=== PATIENT | female | born 1955 | race Caucasian/White ===

== ENCOUNTER → 2018-10-07 14:00 | Outpatient (CLI) | payer OTHER, SELFPAY | DX: Z23 Encounter for immunization (principal) | CPT/HCPCS: 90471; 90686 ==

== ENCOUNTER → 2019-10-29 15:43 | Outpatient (CLI) | payer OTHER, SELFPAY | DX: Z23 Encounter for immunization (principal) | CPT/HCPCS: 90471; 90686 ==

== ENCOUNTER → 2020-10-13 | Outpatient (CLI) | payer OTHER, SELFPAY | PROVIDERS: Referring Provider Internal Medicine; Visit Provider Internal Medicine | DX: Z23 Encounter for immunization (principal) | CPT/HCPCS: 90471; 90686 ==

== ENCOUNTER → 2020-12-03 09:45 | Outpatient (CLI) | payer OTHER, SELFPAY ==
[2020-12-03] MEDS: COVID-19 VACC(MODERNA-1)/PF 100 MCG/0.5 ML VIAL IM (10:02)
== END ==
PROVIDERS: Visit Provider Internal Medicine
DX: Z23 Encounter for immunization (principal)
CPT/HCPCS: 0011A; 91301

== ENCOUNTER → 2020-12-30 09:57 | Outpatient (CLI) | payer OTHER, SELFPAY ==
[2020-12-30] MEDS: COVID-19 VACC #2, MRNA(MOD) 100 MCG/0.5 ML VIAL IM (10:02)
== END ==
PROVIDERS: Visit Provider Internal Medicine
DX: Z23 Encounter for immunization (principal)
CPT/HCPCS: 0012A; 91301

== ENCOUNTER → 2021-02-24 16:00 | Outpatient (CLI) | payer OTHER, SELFPAY ==
--- NOTE | 2021-02-24 16:03 | DI.RAD.S_ITS ---
PROCEDURE: XR KNEE RT 3V INDICATIONS: RIGHT KNEE PAIN/INJURY TECHNIQUE: 3 views of the knee were acquired. COMPARISON: None. FINDINGS: Bones: No fractures or dislocations. No suspicious bony lesions. Mild to moderate medial and patellofemoral compartment osteoarthritis. Mild lateral compartment osteoarthritis. Soft tissues: Small suprapatellar joint effusion. No suspicious soft tissue calcifications. IMPRESSION: 1. No fracture. No acute osseous lesion. If symptoms and/or clinical suspicion for pathology persists, further assessment with repeat radiographs (7-10 days) or advanced imaging (e.g. CT, MRI or bone scan) should be considered. 2. Nonspecific joint effusion. Occult traumatic injury is not excluded by this study. Dictated by: Yesi Lau MD, PhD on 02/24/2021 at 16:47 Approved by: Yesi Lau MD, PhD on 02/24/2021 at 16:49
== END ==
PROVIDERS: PCP Nurse Practitioner Family; Referring Provider Nurse Practitioner Family; Visit Provider Nurse Practitioner Family
DX: M25.561 Pain in right knee (principal)
CPT/HCPCS: 73562

== ENCOUNTER → 2021-03-04 10:22 | Outpatient (CLI) | payer OTHER, SELFPAY ==
--- NOTE | 2021-03-04 10:23 | DI.US.S_ITS ---
PROCEDURE: US EXTREMITY NONVASC LOWER RT INDICATIONS: KNEE PAIN; POSSIBLE BAKERS CYST TECHNIQUE: Real-time scanning was performed of the right popliteal fossa , with image documentation. COMPARISON: None. FINDINGS: 3.3 cm mildly complex Harper's cyst. IMPRESSION: 3.3 cm Harper's cyst. Dictated by: Pj DOTSON Interpreted: Jaden Chong MD on 03/04/2021 at 11:13 Approved by: Jaden Chong M.D. on 03/04/2021 at 12:57
== END ==
PROVIDERS: PCP Nurse Practitioner Family; Referring Provider Nurse Practitioner Family; Visit Provider Nurse Practitioner Family
DX: M71.20 Synovial cyst of popliteal space [Baker], unspecified knee (principal)
CPT/HCPCS: 76882

== ENCOUNTER 2021-05-06 09:00 | Outpatient (RCR) | payer OTHER, SELFPAY ==
--- NOTE | 2021-04-04 12:00 | PT.OIE ---
Current Diagnoses Unilateral primary osteoarthritis, right knee (04/04/21) Unspecified tear of unspecified meniscus, current injury, right knee, initial encounter (04/04/21) Visit Care Team Role Provider Type ALLAN Montano Family Provider Advanced Internal Audit Manager Primary Care Provider Specialty: Family Practice Address: [address] [facility] [address] [facility] [place], [address] Email: Frank Arambula MD Attending Provider Physician Referring Provider Specialty: Orthopedic Surgery Address: [address] [place] [address], [id number] Email: Physical Therapy Initial Evaluation PT-OP-A Visit Information Start: 04/04/21 17:58 Freq: Status: Active Protocol: Document 04/04/21 11:15 DCW (Rec: 04/05/21 09:45 DCW [id number]) Out-Patient Physical Therapy Visit Information Visit Information Visit Type Initial Evaluation Visit Start Time 11:15 Visit Stop Time 12:00 Total Visit Minutes 45 Visit Number 1 Number of MEDICAL SOCIAL WORKER Visits 0 Evaluation Information Evaluation Date 04/04/21 PT-OP-B Current Condition Start: 04/04/21 17:58 Freq: Status: Active Protocol: Document 04/04/21 11:15 DCW (Rec: 04/05/21 09:45 DCW [id number]) Current Condition History of Current Condition Onset Date ~6 week history Current Complaints R knee pain, instability, fatigue History of Current Condition Pt is a 65 year old female presenting with a ~6 week history of right knee pain. Pt notes her pain began when she was bent over and her dog jumped at her. Admits she has been babying it, but going downhill or descending stairs still bothers her. Also admits that since she is compensating, the left is now taking a lot of abuse. Notes some fatigue when out walking the dog or sitting in her car. Has noticed an increase in popping at the knee, and has a recently diagnosed Harper's cyst on the right knee. Notes recent x-ray showed some mild arthritis. PT-OP-C Subjective Start: 04/04/21 17:58 Freq: Status: Active Protocol: Document 04/04/21 11:15 DCW (Rec: 04/05/21 12:46 DCW [id number]) OP-PT Subjective Patient Comments Patient Comments Pivoting just feels like something I shouldn't be doing on it. It just doesn't have the stability it used to. Patient Reported Progress Improving Patient Questionnaires Lower Extremity Functional Scale LEFS Score 43.75% LEFS Impairment 40 to 59% Impaired (Score 32- 47) PT-OP-F Manual Assessment Start: 04/04/21 17:58 Freq: Status: Active Protocol: Document 04/04/21 11:15 DCW (Rec: 04/05/21 12:46 DCW [id number]) Manual Assessments Soft Tissue Assessment Soft Tissue Mobility Assessment Mild joint effusion, general soreness along right medial patella, R Harper's cyst PT-OP-G Mobility & Gait Start: 04/04/21 17:58 Freq: Status: Active Protocol: Document 04/04/21 11:15 DCW (Rec: 04/05/21 14:15 DCW [id number]) OP Gait Assessment Gait Gait Assistance Required: Independent Able to Maintain Weight Bearing Status Yes During Gait Assistive Devices Assistive Device None Comments Gait Comments R supination during gait with abnormal wear pattern along outside edge of right shoe. Stair Climbing Evaluation Comments Stair Climbing Comments Knee discomfort with descending steps PT-OP-L Special Tests Start: 04/04/21 17:58 Freq: Status: Active Protocol: Document 04/04/21 11:15 DCW (Rec: 04/05/21 14:15 DCW [id number]) Special Tests Lumbar Spine Special Tests A-P Shearing Test Results Negative EMMA Test Results Negative Straight Leg Raise Test Results Negative Slump Test Results Negative Compression Test Results Negative Knee Special Tests Varus- 0 Degrees Test Results Negative Valgus- 0 Degrees Test Results Negative Posterior Draw Test Results Negative Patellar Grind Test Test Results Positive R Patella Tap Test Results Positive R Adam's Test Test Results Negative Ankush Test Test Results Negative Apprehension Test Test Results Negative Apley's Compression Test Results Negative Anterior Draw Test Results Negative PT-OP-M Strength Start: 04/04/21 17:58 Freq: Status: Active Protocol: Document 04/04/21 11:15 DCW (Rec: 04/05/21 14:15 DCW [id number]) Hip Strength Hip Manual Muscle Testing Right Flexion (L2) 5 Normal Extension (S1) 5 Normal Abduction 5 Normal Adduction 5 Normal External Rotation 5 Normal Internal Rotation 5 Normal Left Flexion (L2) 5 Normal Extension (S1) 5 Normal Abduction 5 Normal Adduction 5 Normal External Rotation 5 Normal Internal Rotation 5 Normal Knee Strength Knee Manual Muscle Testing Right Flexion (S2) 4 Good Extension (L3) 5 Normal Comments R knee flexion weakness appeared to be more secondary to pain than muscle weakness Left Flexion (S2) 5 Normal Extension (L3) 5 Normal PT-OP-T Assessment and Plan Start: 04/04/21 17:58 Freq: Status: Active Protocol: Document 04/04/21 11:15 DCW (Rec: 04/05/21 14:25 DC [id number]) Physical Therapy Assessment Rehab Potential Rehabilitation Potential Good Evaluation Complexity Number of Personal Factors/Comorbidities 0 Number of Body Systems Impaired 1-2 Clinical Presentation at Evaluation Stable Impairments Impairments Activity Tolerance,Functional Mobility,Gait,Pain,Strength Goals Two Impairment Pt has difficulty walking down hill due to knee pain Custodial Goal (LTG) Pt to hike more than two miles over hilly terrain with no complaints of increased pain. LTG Duration 06/04/21 One Impairment Pt does not have an appropriate home exercise program Short Term Goal (STG) Pt to be independent and compliant with an appropriate HEP STG Duration 05/05/21 Assessment Summary Assessment Pt presents with signs and symptoms consistent with possible patellofemoral dysfunction. Pt's testing at her eval was largely negative, and therapist could not replicate pt's complaints of pain with any back or knee testing, however did discover significant crepitus and complaints of pain with right patella grind test. Pt patellar tracking appears to be mildly dysfunctional, minimal medial pull during knee extension. Additionally, pt does ambulate with right foot supination, and presents with an abnormal wear pattern along the lateral surface of her right shoe. Pt admits this is a normal wear pattern for her shoes, and it is unclear at this time if this is affecting her knee pain or an incidental finding. Pt may benefit from VMO strengthening , improving patellofemoral tracking, and gait training. Physical Therapy Plan Frequency and Duration Frequency of Treatment 2x/Week Duration of Treatment Two months Plan of Care Start Date 04/04/21 Plan of Care End Date 06/04/21 Therapeutic Interventions Therapeutic Interventions Gait Training,Home Exercise Program,Joint Mobilizations, Manual Therapy,Neuromuscular Re-education,Patient/Caregiver Education,Self-Care/Home Management,Therapeutic Exercises Modalities Cold Pack/Ice Massage,Electric Stimulation,Hot Packs, Ultrasound Next Visit Focus/Plan Next Note Type Treatment Note Next Visit Plan VMO strengthening, Patellar joint mobilizations, lao e -stim
--- NOTE | 2021-04-04 12:00 | PT.OPPOC ---
Physical, Occupational & Speech Therapy At [facility] Current Diagnoses Unilateral primary osteoarthritis, right knee (04/04/21) Unspecified tear of unspecified meniscus, current injury, right knee, initial encounter (04/04/21) Visit Care Team Role Provider Type ALLAN Montano Family Provider Advanced Lieutenant Firefighter Primary Care Provider Specialty: Family Practice Address: [facility] [place], [address] Email: Frank Arambula MD Attending Provider Physician Referring Provider Specialty: Orthopedic Surgery Address: [address] [place] [address], [id number] Email: [email or web address] Plan Of Care PT-OP-T Assessment and Plan Start: 04/04/21 17:58 Freq: Status: Active Protocol: Document 04/04/21 11:15 DCW (Rec: 04/05/21 14:25 DCW [id number]) Physical Therapy Assessment Rehab Potential Rehabilitation Potential Good Evaluation Complexity Number of Personal Factors/Comorbidities 0 Number of Body Systems Impaired 1-2 Clinical Presentation at Evaluation Stable Impairments Impairments Activity Tolerance,Functional Mobility,Gait,Pain,Strength Goals Two Impairment Pt has difficulty walking down hill due to knee pain Professor Of Languages Goal (LTG) Pt to hike more than two miles over hilly terrain with no complaints of increased pain. LTG Duration 06/04/21 One Impairment Pt does not have an appropriate home exercise program Short Term Goal (STG) Pt to be independent and compliant with an appropriate HEP STG Duration 05/05/21 Assessment Summary Assessment Pt presents with signs and symptoms consistent with possible patellofemoral dysfunction. Pt's testing at her eval was largely negative, and therapist could not replicate pt's complaints of pain with any back or knee testing, however did discover significant crepitus and complaints of pain with right patella grind test. Pt patellar tracking appears to be mildly dysfunctional, minimal medial pull during knee extension. Additionally, pt does ambulate with right foot supination, and presents with an abnormal wear pattern along the lateral surface of her right shoe. Pt admits this is a normal wear pattern for her shoes, and it is unclear at this time if this is affecting her knee pain or an incidental finding. Pt may benefit from VMO strengthening , improving patellofemoral tracking, and gait training. Physical Therapy Plan Frequency and Duration Frequency of Treatment 2x/Week Duration of Treatment Two months Plan of Care Start Date 04/04/21 Plan of Care End Date 06/04/21 Therapeutic Interventions Therapeutic Interventions Gait Training,Home Exercise Program,Joint Mobilizations, Manual Therapy,Neuromuscular Re-education,Patient/Caregiver Education,Self-Care/Home Management,Therapeutic Exercises Modalities Cold Pack/Ice Massage,Electric Stimulation,Hot Packs, Ultrasound Next Visit Focus/Plan Next Note Type Treatment Note Next Visit Plan VMO strengthening, Patellar joint mobilizations, tajik e -stim Plan of Care Dates Plan of Care Start Date 04/04/21 Plan of Care End Date 06/04/21 Electronically Signed by: Dandre Mcknight, PT 04/05/21 0568 Please Sign and Return: I have reviewed this Plan of Care and certify that the skilled therapy services above are required to meet the patient?s needs. Physician Signature Date Printed Name and Credentials Clinical Instructor Signature Printed Name and Credentials
--- NOTE | 2021-04-13 17:36 | PT.OTN ---
Current Diagnoses Unilateral primary osteoarthritis, right knee (04/13/21) Unspecified tear of unspecified meniscus, current injury, right knee, initial encounter (04/13/21) Physical Therapy Treatment Note PT-OP-A Visit Information Start: 04/04/21 17:58 Freq: Status: Active Protocol: Document 04/13/21 16:45 DCW (Rec: 04/13/21 17:36 DCW [id number]) Out-Patient Physical Therapy Visit Information Visit Information Visit Type Treatment Note Visit Start Time 16:45 Visit Stop Time 17:30 Total Visit Minutes 45 Visit Number 2 Number of HEAVY ANTIARMOR WEAPONS INFANTRYMAN Visits 0 Evaluation Information Evaluation Date 04/04/21 PT-OP-B Current Condition Start: 04/04/21 17:58 Freq: Status: Active Protocol: Document 04/04/21 11:15 DCW (Rec: 04/05/21 09:45 DCW [id number]) Current Condition History of Current Condition Onset Date ~6 week history Current Complaints R knee pain, instability, fatigue History of Current Condition Pt is a 65 year old female presenting with a ~6 week history of right knee pain. Pt notes her pain began when she was bent over and her dog jumped at her. Admits she has been babying it, but going downhill or descending stairs still bothers her. Also admits that since she is compensating, the left is now taking a lot of abuse. Notes some fatigue when out walking the dog or sitting inher car. Has noticed an increase in popping at the knee, and has a recently diagnosed Harper's cyst on the right knee. Notes recent x-ray showed some mild arthritis. PT-OP-C Subjective Start: 04/04/21 17:58 Freq: Status: Active Protocol: Document 04/13/21 16:45 DCW (Rec: 04/13/21 17:36 DCW [id number]) OP-PT Subjective Patient Comments Patient Comments Pt feels like her knee has been better, she has been paying more attention to her foot strike. Brings in her usual walking shoes, significant wear along lateral edge bilaterally. PT-OP-F Manual Assessment Start: 04/04/21 17:58 Freq: Status: Active Protocol: Document 04/04/21 11:15 DCW (Rec: 04/05/21 12:46 DCW [id number]) Manual Assessments Soft Tissue Assessment Soft Tissue Mobility Assessment Mild joint effusion, general soreness along right medial patella, R Harper's cyst PT-OP-G Mobility & Gait Start: 04/04/21 17:58 Freq: Status: Active Protocol: Document 04/04/21 11:15 DCW (Rec: 04/05/21 14:15 DCW [id number]) OP Gait Assessment Gait Gait Assistance Required: Independent Able to Maintain Weight Bearing Status Yes During Gait Assistive Devices Assistive Device None Comments Gait Comments R supination during gait with abnormal wear pattern along outside edge of right shoe. Stair Climbing Evaluation Comments Stair Climbing Comments Knee discomfort with descending steps PT-OP-L Special Tests Start: 04/04/21 17:58 Freq: Status: Active Protocol: Document 04/04/21 11:15 DCW (Rec: 04/05/21 14:15 DCW [id number]) Special Tests Lumbar Spine Special Tests A-P Shearing Test Results Negative EMMA Test Results Negative Straight Leg Raise Test Results Negative Slump Test Results Negative Compression Test Results Negative Knee Special Tests Varus- 0 Degrees Test Results Negative Valgus- 0 Degrees Test Results Negative Posterior Draw Test Results Negative Patellar Grind Test Test Results Positive R Patella Tap Test Results Positive R Adam's Test Test Results Negative Ankush Test Test Results Negative Apprehension Test Test Results Negative Apley's Compression Test Results Negative Anterior Draw Test Results Negative PT-OP-M Strength Start: 04/04/21 17:58 Freq: Status: Active Protocol: Document 04/04/21 11:15 DCW (Rec: 04/05/21 14:15 DCW [id number]) Hip Strength Hip Manual Muscle Testing Right Flexion (L2) 5 Normal Extension (S1) 5 Normal Abduction 5 Normal Adduction 5 Normal External Rotation 5 Normal Internal Rotation 5 Normal Left Flexion (L2) 5 Normal Extension (S1) 5 Normal Abduction 5 Normal Adduction 5 Normal External Rotation 5 Normal Internal Rotation 5 Normal Knee Strength Knee Manual Muscle Testing Right Flexion (S2) 4 Good Extension (L3) 5 Normal Comments R knee flexion weakness appeared to be more secondary to pain than muscle weakness Left Flexion (S2) 5 Normal Extension (L3) 5 Normal PT-OP-Q Treatments Start: 04/04/21 17:58 Freq: Status: Active Protocol: Document 04/13/21 16:45 DCW (Rec: 04/13/21 17:36 DCW [id number]) Cardio Equipment Recumbent Bicycle Duration (Minutes) 5 Resistance 3 Seat Position 3 Gym Equipment Shuttle Recovery Unilateral Squats Details Lateral T-band pull - lv 2 Resistance 50# Shuttle Recovery Platform Stable Bilateral Squats Details Ball Squeeze Resistance 75# Shuttle Recovery Platform Stable Therapeutic Exercises Supine Exercises 1 Supine Exercise Name SLR /c ER Side bilateral Standing Exercises 3 Standing Exercise Name Half-kneel psoas stretch Side bilateral 2 Standing Exercise Name Wall squats /c add ball squeeze 1 Standing Exercise Name TKE Side bilateral Resistance Lv 2 Equipment Used T-band Gait Training Gait Activity 1 Description Gait training Treatment Focus Heel strike, limit foot ER Manual Therapy Treatment Soft Tissue Mobilization 1 Body Location Bilateral psoas Mobilization Type Sustained Pressure,Trigger Point Release Body Position Hooklying Taping 1 Body Location Right patella Treatment Focus Medial patella pull Type of Tape Kinesio Tape PT-OP-T Assessment and Plan Start: 04/04/21 17:58 Freq: Status: Active Protocol: Document 04/13/21 16:45 DCW (Rec: 04/13/21 17:36 DCW [id number]) Physical Therapy Assessment Impairments Impairments Activity Tolerance,Functional Mobility,Gait,Pain,Strength Goals Two Impairment Pt has difficulty walking down hill due to knee pain Wall And Floor Tiler Goal (LTG) Pt to hike more than two miles over hilly terrain with no complaints of increased pain. LTG Duration 06/04/21 One Impairment Pt does not have an appropriate home exercise program Short Term Goal (STG) Pt to be independent and compliant with an appropriate HEP STG Duration 05/05/21 Assessment Summary Assessment Pt tolerated treatment very well today, happy with stretches and gait tips. Physical Therapy Plan Frequency and Duration Frequency of Treatment 2x/Week Duration of Treatment Two months Plan of Care Start Date 04/04/21 Plan of Care End Date 06/04/21 Therapeutic Interventions Therapeutic Interventions Gait Training,Home Exercise Program,Joint Mobilizations, Manual Therapy,Neuromuscular Re-education,Patient/Caregiver Education,Self-Care/Home Management,Therapeutic Exercises Modalities Cold Pack/Ice Massage,Electric Stimulation,Hot Packs, Ultrasound Next Visit Focus/Plan Next Note Type Treatment Note Next Visit Plan VMO strengthening, Patellar joint mobilizations, lao e -stim
--- NOTE | 2021-04-15 12:49 | PT.OTN ---
Current Diagnoses Unilateral primary osteoarthritis, right knee (04/15/21) Unspecified tear of unspecified meniscus, current injury, right knee, initial encounter (04/15/21) Physical Therapy Treatment Note PT-OP-A Visit Information Start: 04/04/21 17:58 Freq: Status: Active Protocol: Document 04/15/21 12:00 DCW (Rec: 04/15/21 12:49 DCW [id number]) Out-Patient Physical Therapy Visit Information Visit Information Visit Type Treatment Note Visit Start Time 12:00 Visit Stop Time 12:45 Total Visit Minutes 45 Visit Number 3 Number of ELECTRONIC SECURITY TECHNICIAN Visits 0 Evaluation Information Evaluation Date 04/04/21 PT-OP-B Current Condition Start: 04/04/21 17:58 Freq: Status: Active Protocol: Document 04/04/21 11:15 DCW (Rec: 04/05/21 09:45 DCW [id number]) Current Condition History of Current Condition Onset Date ~6 week history Current Complaints R knee pain, instability, fatigue History of Current Condition Pt is a 65 year old female presenting with a ~6 week history of right knee pain. Pt notes her pain began when she was bent over and her dog jumped at her. Admits she has been babying it, but going downhill or descending stairs still bothers her. Also admits that since she is compensating, the left is now taking a lot of abuse. Notes some fatigue when out walking the dog or sitting inher car. Has noticed an increase in popping at the knee, and has a recently diagnosed Harper's cyst on the right knee. Notes recent x-ray showed some mild arthritis. PT-OP-C Subjective Start: 04/04/21 17:58 Freq: Status: Active Protocol: Document 04/15/21 12:00 DCW (Rec: 04/15/21 12:49 DCW [id number]) OP-PT Subjective Patient Comments Patient Comments I didn't like the tape at first, it felt like it was pulling too much and kind of hurt, but then I got used to it, and I think it really started helping. PT-OP-F Manual Assessment Start: 04/04/21 17:58 Freq: Status: Active Protocol: Document 04/04/21 11:15 DCW (Rec: 04/05/21 12:46 DCW [id number]) Manual Assessments Soft Tissue Assessment Soft Tissue Mobility Assessment Mild joint effusion, general soreness along right medial patella, R Harper's cyst PT-OP-G Mobility & Gait Start: 04/04/21 17:58 Freq: Status: Active Protocol: Document 04/04/21 11:15 DCW (Rec: 04/05/21 14:15 DCW [id number]) OP Gait Assessment Gait Gait Assistance Required: Independent Able to Maintain Weight Bearing Status Yes During Gait Assistive Devices Assistive Device None Comments Gait Comments R supination during gait with abnormal wear pattern along outside edge of right shoe. Stair Climbing Evaluation Comments Stair Climbing Comments Knee discomfort with descending steps PT-OP-L Special Tests Start: 04/04/21 17:58 Freq: Status: Active Protocol: Document 04/04/21 11:15 DCW (Rec: 04/05/21 14:15 DCW [id number]) Special Tests Lumbar Spine Special Tests A-P Shearing Test Results Negative EMMA Test Results Negative Straight Leg Raise Test Results Negative Slump Test Results Negative Compression Test Results Negative Knee Special Tests Varus- 0 Degrees Test Results Negative Valgus- 0 Degrees Test Results Negative Posterior Draw Test Results Negative Patellar Grind Test Test Results Positive R Patella Tap Test Results Positive R Adam's Test Test Results Negative Ankush Test Test Results Negative Apprehension Test Test Results Negative Apley's Compression Test Results Negative Anterior Draw Test Results Negative PT-OP-M Strength Start: 04/04/21 17:58 Freq: Status: Active Protocol: Document 04/04/21 11:15 DCW (Rec: 04/05/21 14:15 DCW [id number]) Hip Strength Hip Manual Muscle Testing Right Flexion (L2) 5 Normal Extension (S1) 5 Normal Abduction 5 Normal Adduction 5 Normal External Rotation 5 Normal Internal Rotation 5 Normal Left Flexion (L2) 5 Normal Extension (S1) 5 Normal Abduction 5 Normal Adduction 5 Normal External Rotation 5 Normal Internal Rotation 5 Normal Knee Strength Knee Manual Muscle Testing Right Flexion (S2) 4 Good Extension (L3) 5 Normal Comments R knee flexion weakness appeared to be more secondary to pain than muscle weakness Left Flexion (S2) 5 Normal Extension (L3) 5 Normal PT-OP-Q Treatments Start: 04/04/21 17:58 Freq: Status: Active Protocol: Document 04/15/21 12:00 DCW (Rec: 04/15/21 12:49 DCW [id number]) Cardio Equipment Recumbent Bicycle Duration (Minutes) 5 Resistance 3 Seat Position 3 Gym Equipment Shuttle Recovery Unilateral Squats Details Lateral T-band pull - lv 2 Resistance 50# Shuttle Recovery Platform Stable Bilateral Squats Details Ball Squeeze Resistance 75# Shuttle Recovery Platform Stable Therapeutic Exercises Standing Exercises 4 Standing Exercise Name Lunge Side bilateral Equipment Used Blue BOSU 1 Standing Exercise Name TKE Side bilateral Resistance Lv 3 Equipment Used T-band Manual Therapy Treatment Joint Mobilizations 1 Joint Patella mobilization Direction Inf/Sup Grade III Taping 1 Body Location Right patella Treatment Focus Medial patella pull Type of Tape Kinesio Tape PT-OP-T Assessment and Plan Start: 04/04/21 17:58 Freq: Status: Active Protocol: Document 04/15/21 12:00 DCW (Rec: 04/15/21 12:49 DCW [id number]) Physical Therapy Assessment Impairments Impairments Activity Tolerance,Functional Mobility,Gait,Pain,Strength Goals Two Impairment Pt has difficulty walking down hill due to knee pain Welfare Analyst Goal (LTG) Pt to hike more than two miles over hilly terrain with no complaints of increased pain. LTG Duration 06/04/21 One Impairment Pt does not have an appropriate home exercise program Short Term Goal (STG) Pt to be independent and compliant with an appropriate HEP STG Duration 05/05/21 Assessment Summary Assessment Pt doing well, showing improved patella mobility without pain. K-tape helping with patella tracking. Physical Therapy Plan Frequency and Duration Frequency of Treatment 2x/Week Duration of Treatment Two months Plan of Care Start Date 04/04/21 Plan of Care End Date 06/04/21 Therapeutic Interventions Therapeutic Interventions Gait Training,Home Exercise Program,Joint Mobilizations, Manual Therapy,Neuromuscular Re-education,Patient/Caregiver Education,Self-Care/Home Management,Therapeutic Exercises Modalities Cold Pack/Ice Massage,Electric Stimulation,Hot Packs, Ultrasound Next Visit Focus/Plan Next Note Type Treatment Note Next Visit Plan VMO strengthening, Patellar joint mobilizations, barbadian e -stim
--- NOTE | 2021-04-27 17:36 | PT.OTN ---
Current Diagnoses Unilateral primary osteoarthritis, right knee (04/27/21) Unspecified tear of unspecified meniscus, current injury, right knee, initial encounter (04/27/21) Physical Therapy Treatment Note PT-OP-A Visit Information Start: 04/04/21 17:58 Freq: Status: Active Protocol: Document 04/27/21 16:50 DCW (Rec: 04/27/21 17:36 DCW [id number]) Out-Patient Physical Therapy Visit Information Visit Information Visit Type Treatment Note Visit Start Time 16:50 Visit Stop Time 17:30 Total Visit Minutes 40 Visit Number 4 Number of AIR DEODORIZER SERVICER Visits 0 Evaluation Information Evaluation Date 04/04/21 PT-OP-B Current Condition Start: 04/04/21 17:58 Freq: Status: Active Protocol: Document 04/04/21 11:15 DCW (Rec: 04/05/21 09:45 DCW [id number]) Current Condition History of Current Condition Onset Date ~6 week history Current Complaints R knee pain, instability, fatigue History of Current Condition Pt is a 65 year old female presenting with a ~6 week history of right knee pain. Pt notes her pain began when she was bent over and her dog jumped at her. Admits she has been babying it, but going downhill or descending stairs still bothers her. Also admits that since she is compensating, the left is now taking a lot of abuse. Notes some fatigue when out walking the dog or sitting inher car. Has noticed an increase in popping at the knee, and has a recently diagnosed Harper's cyst on the right knee. Notes recent x-ray showed some mild arthritis. PT-OP-C Subjective Start: 04/04/21 17:58 Freq: Status: Active Protocol: Document 04/27/21 16:50 DCW (Rec: 04/27/21 17:36 DCW [id number]) OP-PT Subjective Patient Comments Patient Comments Pt just got back from her trip to [place], feels like her knee is doing much better, was able to do a lot of hiking without problems, does note some catching in her knee cap after trying to stretch her knee out after sitting for her traveling yesterday. PT-OP-F Manual Assessment Start: 04/04/21 17:58 Freq: Status: Active Protocol: Document 04/04/21 11:15 DCW (Rec: 04/05/21 12:46 DCW [id number]) Manual Assessments Soft Tissue Assessment Soft Tissue Mobility Assessment Mild joint effusion, general soreness along right medial patella, R Harper's cyst PT-OP-G Mobility & Gait Start: 04/04/21 17:58 Freq: Status: Active Protocol: Document 04/04/21 11:15 DCW (Rec: 04/05/21 14:15 DCW [id number]) OP Gait Assessment Gait Gait Assistance Required: Independent Able to Maintain Weight Bearing Status Yes During Gait Assistive Devices Assistive Device None Comments Gait Comments R supination during gait with abnormal wear pattern along outside edge of right shoe. Stair Climbing Evaluation Comments Stair Climbing Comments Knee discomfort with descending steps PT-OP-L Special Tests Start: 04/04/21 17:58 Freq: Status: Active Protocol: Document 04/04/21 11:15 DCW (Rec: 04/05/21 14:15 DCW [id number]) Special Tests Lumbar Spine Special Tests A-P Shearing Test Results Negative EMMA Test Results Negative Straight Leg Raise Test Results Negative Slump Test Results Negative Compression Test Results Negative Knee Special Tests Varus- 0 Degrees Test Results Negative Valgus- 0 Degrees Test Results Negative Posterior Draw Test Results Negative Patellar Grind Test Test Results Positive R Patella Tap Test Results Positive R Adam's Test Test Results Negative Ankush Test Test Results Negative Apprehension Test Test Results Negative Apley's Compression Test Results Negative Anterior Draw Test Results Negative PT-OP-M Strength Start: 04/04/21 17:58 Freq: Status: Active Protocol: Document 04/04/21 11:15 DCW (Rec: 04/05/21 14:15 DCW [id number]) Hip Strength Hip Manual Muscle Testing Right Flexion (L2) 5 Normal Extension (S1) 5 Normal Abduction 5 Normal Adduction 5 Normal External Rotation 5 Normal Internal Rotation 5 Normal Left Flexion (L2) 5 Normal Extension (S1) 5 Normal Abduction 5 Normal Adduction 5 Normal External Rotation 5 Normal Internal Rotation 5 Normal Knee Strength Knee Manual Muscle Testing Right Flexion (S2) 4 Good Extension (L3) 5 Normal Comments R knee flexion weakness appeared to be more secondary to pain than muscle weakness Left Flexion (S2) 5 Normal Extension (L3) 5 Normal PT-OP-Q Treatments Start: 04/04/21 17:58 Freq: Status: Active Protocol: Document 04/27/21 16:50 DCW (Rec: 04/27/21 17:36 DCW [id number]) Cardio Equipment Recumbent Bicycle Duration (Minutes) 5 Resistance 3 Seat Position 3 Gym Equipment Shuttle Recovery Unilateral Squats Details Lateral T-band pull - lv 2 Resistance 50# Shuttle Recovery Platform Stable Bilateral Squats Details Ball Squeeze Resistance 87# Shuttle Recovery Platform Stable Therapeutic Exercises Standing Exercises 4 Standing Exercise Name Lunge Side bilateral Equipment Used Blue BOSU 1 Standing Exercise Name TKE Side bilateral Resistance Lv 3 Equipment Used T-band Manual Therapy Treatment Joint Mobilizations 1 Joint Patella mobilization Direction Inf/Sup Grade III PT-OP-T Assessment and Plan Start: 04/04/21 17:58 Freq: Status: Active Protocol: Document 04/27/21 16:50 DCW (Rec: 04/27/21 17:36 DCW [id number]) Physical Therapy Assessment Impairments Impairments Activity Tolerance,Functional Mobility,Gait,Pain,Strength Goals Two Impairment Pt has difficulty walking down hill due to knee pain Group Home Goal (LTG) Pt to hike more than two miles over hilly terrain with no complaints of increased pain. LTG Duration 06/04/21 One Impairment Pt does not have an appropriate home exercise program Short Term Goal (STG) Pt to be independent and compliant with an appropriate HEP STG Duration 05/05/21 Assessment Summary Assessment Pt overall feeling better, feels her knee is more mobile and walking is easier. Physical Therapy Plan Frequency and Duration Frequency of Treatment 2x/Week Duration of Treatment Two months Plan of Care Start Date 04/04/21 Plan of Care End Date 06/04/21 Therapeutic Interventions Therapeutic Interventions Gait Training,Home Exercise Program,Joint Mobilizations, Manual Therapy,Neuromuscular Re-education,Patient/Caregiver Education,Self-Care/Home Management,Therapeutic Exercises Modalities Cold Pack/Ice Massage,Electric Stimulation,Hot Packs, Ultrasound Next Visit Focus/Plan Next Note Type Treatment Note Next Visit Plan VMO strengthening, Patellar joint mobilizations, japanese e -stim
--- NOTE | 2021-04-29 09:47 | PT.OTN ---
Current Diagnoses Unilateral primary osteoarthritis, right knee (04/29/21) Unspecified tear of unspecified meniscus, current injury, right knee, initial encounter (04/29/21) Physical Therapy Treatment Note PT-OP-A Visit Information Start: 04/04/21 17:58 Freq: Status: Active Protocol: Document 04/29/21 09:05 DCW (Rec: 04/29/21 09:47 DCW [id number]) Out-Patient Physical Therapy Visit Information Visit Information Visit Type Treatment Note Visit Start Time 09:05 Visit Stop Time 09:45 Total Visit Minutes 40 Visit Number 5 Number of MANAGER MERCHANDISE Visits 0 Evaluation Information Evaluation Date 04/04/21 PT-OP-B Current Condition Start: 04/04/21 17:58 Freq: Status: Active Protocol: Document 04/04/21 11:15 DCW (Rec: 04/05/21 09:45 DCW [id number]) Current Condition History of Current Condition Onset Date ~6 week history Current Complaints R knee pain, instability, fatigue History of Current Condition Pt is a 65 year old female presenting with a ~6 week history of right knee pain. Pt notes her pain began when she was bent over and her dog jumped at her. Admits she has been babying it, but going downhill or descending stairs still bothers her. Also admits that since she is compensating, the left is now taking a lot of abuse. Notes some fatigue when out walking the dog or sitting inher car. Has noticed an increase in popping at the knee, and has a recently diagnosed Harper's cyst on the right knee. Notes recent x-ray showed some mild arthritis. PT-OP-C Subjective Start: 04/04/21 17:58 Freq: Status: Active Protocol: Document 04/29/21 09:05 DCW (Rec: 04/29/21 09:47 DCW [id number]) OP-PT Subjective Patient Comments Patient Comments Pt reports she went out golfing yesterday for the first time in a long time, and her knee did wonderfully. PT-OP-F Manual Assessment Start: 04/04/21 17:58 Freq: Status: Active Protocol: Document 04/04/21 11:15 DCW (Rec: 04/05/21 12:46 DCW [id number]) Manual Assessments Soft Tissue Assessment Soft Tissue Mobility Assessment Mild joint effusion, general soreness along right medial patella, R Harper's cyst PT-OP-G Mobility & Gait Start: 04/04/21 17:58 Freq: Status: Active Protocol: Document 04/04/21 11:15 DCW (Rec: 04/05/21 14:15 DCW [id number]) OP Gait Assessment Gait Gait Assistance Required: Independent Able to Maintain Weight Bearing Status Yes During Gait Assistive Devices Assistive Device None Comments Gait Comments R supination during gait with abnormal wear pattern along outside edge of right shoe. Stair Climbing Evaluation Comments Stair Climbing Comments Knee discomfort with descending steps PT-OP-L Special Tests Start: 04/04/21 17:58 Freq: Status: Active Protocol: Document 04/04/21 11:15 DCW (Rec: 04/05/21 14:15 DCW [id number]) Special Tests Lumbar Spine Special Tests A-P Shearing Test Results Negative EMMA Test Results Negative Straight Leg Raise Test Results Negative Slump Test Results Negative Compression Test Results Negative Knee Special Tests Varus- 0 Degrees Test Results Negative Valgus- 0 Degrees Test Results Negative Posterior Draw Test Results Negative Patellar Grind Test Test Results Positive R Patella Tap Test Results Positive R Adam's Test Test Results Negative Ankush Test Test Results Negative Apprehension Test Test Results Negative Apley's Compression Test Results Negative Anterior Draw Test Results Negative PT-OP-M Strength Start: 04/04/21 17:58 Freq: Status: Active Protocol: Document 04/04/21 11:15 DCW (Rec: 04/05/21 14:15 DCW [id number]) Hip Strength Hip Manual Muscle Testing Right Flexion (L2) 5 Normal Extension (S1) 5 Normal Abduction 5 Normal Adduction 5 Normal External Rotation 5 Normal Internal Rotation 5 Normal Left Flexion (L2) 5 Normal Extension (S1) 5 Normal Abduction 5 Normal Adduction 5 Normal External Rotation 5 Normal Internal Rotation 5 Normal Knee Strength Knee Manual Muscle Testing Right Flexion (S2) 4 Good Extension (L3) 5 Normal Comments R knee flexion weakness appeared to be more secondary to pain than muscle weakness Left Flexion (S2) 5 Normal Extension (L3) 5 Normal PT-OP-Q Treatments Start: 04/04/21 17:58 Freq: Status: Active Protocol: Document 04/29/21 09:05 DCW (Rec: 04/29/21 09:47 DCW [id number]) Cardio Equipment Recumbent Bicycle Duration (Minutes) 6 Resistance 5 Seat Position 2 Gym Equipment Shuttle Recovery Unilateral Squats Details Lateral T-band pull - lv 2 Resistance 50# Shuttle Recovery Platform Stable Bilateral Squats Details Ball Squeeze Resistance 100# Shuttle Recovery Platform Stable Therapeutic Exercises Standing Exercises 4 Standing Exercise Name Lunge Side bilateral Equipment Used Blue BOSU 1 Standing Exercise Name TKE Side bilateral Resistance Lv 3 Equipment Used T-band Manual Therapy Treatment Joint Mobilizations 1 Joint Patella mobilization Direction Inf/Sup Grade III PT-OP-T Assessment and Plan Start: 04/04/21 17:58 Freq: Status: Active Protocol: Document 04/29/21 09:05 [facility] (Rec: 04/29/21 09:47 [facility] [id number]) Physical Therapy Assessment Impairments Impairments Activity Tolerance,Functional Mobility,Gait,Pain,Strength Goals Two Impairment Pt has difficulty walking down hill due to knee pain Shovel Oiler Goal (LTG) Pt to hike more than two miles over hilly terrain with no complaints of increased pain. LTG Duration 06/04/21 One Impairment Pt does not have an appropriate home exercise program Short Term Goal (STG) Pt to be independent and compliant with an appropriate HEP STG Duration 05/05/21 Assessment Summary Assessment Pt is doing very well, some continues degenerative changes in patella. Physical Therapy Plan Frequency and Duration Frequency of Treatment 2x/Week Duration of Treatment Two months Plan of Care Start Date 04/04/21 Plan of Care End Date 06/04/21 Therapeutic Interventions Therapeutic Interventions Gait Training,Home Exercise Program,Joint Mobilizations, Manual Therapy,Neuromuscular Re-education,Patient/Caregiver Education,Self-Care/Home Management,Therapeutic Exercises Modalities Cold Pack/Ice Massage,Electric Stimulation,Hot Packs, Ultrasound Next Visit Focus/Plan Next Note Type Treatment Note Next Visit Plan VMO strengthening, Patellar joint mobilizations, latvian e -stim
--- NOTE | 2021-05-03 17:29 | PT.OTN ---
Current Diagnoses Unilateral primary osteoarthritis, right knee (05/03/21) Unspecified tear of unspecified meniscus, current injury, right knee, initial encounter (05/03/21) Physical Therapy Treatment Note PT-OP-A Visit Information Start: 04/04/21 17:58 Freq: Status: Active Protocol: Document 05/03/21 16:50 DCW (Rec: 05/03/21 17:25 DCW [id number]) Out-Patient Physical Therapy Visit Information Visit Information Visit Type Treatment Note Visit Start Time 16:50 Visit Stop Time 17:30 Total Visit Minutes 40 Visit Number 6 Number of CHILDCARE DIRECTOR Visits 0 Evaluation Information Evaluation Date 04/04/21 PT-OP-B Current Condition Start: 04/04/21 17:58 Freq: Status: Active Protocol: Document 04/04/21 11:15 DCW (Rec: 04/05/21 09:45 DCW [id number]) Current Condition History of Current Condition Onset Date ~6 week history Current Complaints R knee pain, instability, fatigue History of Current Condition Pt is a 65 year old female presenting with a ~6 week history of right knee pain. Pt notes her pain began when she was bent over and her dog jumped at her. Admits she has been babying it, but going downhill or descending stairs still bothers her. Also admits that since she is compensating, the left is now taking a lot of abuse. Notes some fatigue when out walking the dog or sitting inher car. Has noticed an increase in popping at the knee, and has a recently diagnosed Harper's cyst on the right knee. Notes recent x-ray showed some mild arthritis. PT-OP-C Subjective Start: 04/04/21 17:58 Freq: Status: Active Protocol: Document 05/03/21 16:50 DCW (Rec: 05/03/21 17:25 DCW [id number]) OP-PT Subjective Patient Comments Patient Comments It's feeling more like it is supposed to. I'm picking up speed walking my dog. PT-OP-F Manual Assessment Start: 04/04/21 17:58 Freq: Status: Active Protocol: Document 04/04/21 11:15 DCW (Rec: 04/05/21 12:46 DCW [id number]) Manual Assessments Soft Tissue Assessment Soft Tissue Mobility Assessment Mild joint effusion, general soreness along right medial patella, R Harper's cyst PT-OP-G Mobility & Gait Start: 04/04/21 17:58 Freq: Status: Active Protocol: Document 04/04/21 11:15 DCW (Rec: 04/05/21 14:15 DCW [id number]) OP Gait Assessment Gait Gait Assistance Required: Independent Able to Maintain Weight Bearing Status Yes During Gait Assistive Devices Assistive Device None Comments Gait Comments R supination during gait with abnormal wear pattern along outside edge of right shoe. Stair Climbing Evaluation Comments Stair Climbing Comments Knee discomfort with descending steps PT-OP-L Special Tests Start: 04/04/21 17:58 Freq: Status: Active Protocol: Document 04/04/21 11:15 DCW (Rec: 04/05/21 14:15 DCW [id number]) Special Tests Lumbar Spine Special Tests A-P Shearing Test Results Negative EMMA Test Results Negative Straight Leg Raise Test Results Negative Slump Test Results Negative Compression Test Results Negative Knee Special Tests Varus- 0 Degrees Test Results Negative Valgus- 0 Degrees Test Results Negative Posterior Draw Test Results Negative Patellar Grind Test Test Results Positive R Patella Tap Test Results Positive R Adam's Test Test Results Negative Ankuhs Test Test Results Negative Apprehension Test Test Results Negative Apley's Compression Test Results Negative Anterior Draw Test Results Negative PT-OP-M Strength Start: 04/04/21 17:58 Freq: Status: Active Protocol: Document 04/04/21 11:15 DCW (Rec: 04/05/21 14:15 DCW [id number]) Hip Strength Hip Manual Muscle Testing Right Flexion (L2) 5 Normal Extension (S1) 5 Normal Abduction 5 Normal Adduction 5 Normal External Rotation 5 Normal Internal Rotation 5 Normal Left Flexion (L2) 5 Normal Extension (S1) 5 Normal Abduction 5 Normal Adduction 5 Normal External Rotation 5 Normal Internal Rotation 5 Normal Knee Strength Knee Manual Muscle Testing Right Flexion (S2) 4 Good Extension (L3) 5 Normal Comments R knee flexion weakness appeared to be more secondary to pain than muscle weakness Left Flexion (S2) 5 Normal Extension (L3) 5 Normal PT-OP-Q Treatments Start: 04/04/21 17:58 Freq: Status: Active Protocol: Document 05/03/21 16:50 DCW (Rec: 05/03/21 17:25 DCW [id number]) Cardio Equipment Recumbent Bicycle Duration (Minutes) 6 Resistance 5 Seat Position 2 Gym Equipment Shuttle Recovery Unilateral Squats Details Lateral T-band pull - lv 2 Resistance 50# Shuttle Recovery Platform Stable Bilateral Squats Details Ball Squeeze Resistance 100# Shuttle Recovery Platform Stable Therapeutic Exercises Standing Exercises 4 Standing Exercise Name Lunge Side bilateral Equipment Used Blue BOSU 1 Standing Exercise Name TKE Side bilateral Resistance Lv 3 Equipment Used T-band Manual Therapy Treatment Joint Mobilizations 1 Joint Patella mobilization Direction Inf/Sup Grade III PT-OP-T Assessment and Plan Start: 04/04/21 17:58 Freq: Status: Active Protocol: Document 05/03/21 16:50 DCW (Rec: 05/03/21 17:25 DCW [id number]) Physical Therapy Assessment Impairments Impairments Activity Tolerance,Functional Mobility,Gait,Pain,Strength Goals Two Impairment Pt has difficulty walking down hill due to knee pain Half-Way Goal (LTG) Pt to hike more than two miles over hilly terrain with no complaints of increased pain. LTG Duration 06/04/21 One Impairment Pt does not have an appropriate home exercise program Short Term Goal (STG) Pt to be independent and compliant with an appropriate HEP STG Duration 05/05/21 Assessment Summary Assessment Pt feels pretty confident that she is moving in the right direction, and will continue to improve as she starts moving. At this time, pt is agreeable to discharge following her next scheduled visit later this week. Physical Therapy Plan Frequency and Duration Frequency of Treatment 2x/Week Duration of Treatment Two months Plan of Care Start Date 04/04/21 Plan of Care End Date 06/04/21 Therapeutic Interventions Therapeutic Interventions Gait Training,Home Exercise Program,Joint Mobilizations, Manual Therapy,Neuromuscular Re-education,Patient/Caregiver Education,Self-Care/Home Management,Therapeutic Exercises Modalities Cold Pack/Ice Massage,Electric Stimulation,Hot Packs, Ultrasound Next Visit Focus/Plan Next Note Type Treatment Note Next Visit Plan VMO strengthening, Patellar joint mobilizations, icelandic e -stim
--- NOTE | 2021-05-06 09:45 | PT.OTN ---
Current Diagnoses Unilateral primary osteoarthritis, right knee (05/06/21) Unspecified tear of unspecified meniscus, current injury, right knee, initial encounter (05/06/21) Physical Therapy Treatment Note PT-OP-A Visit Information Start: 04/04/21 17:58 Freq: Status: Active Protocol: Document 05/06/21 09:05 SP (Rec: 05/06/21 09:49 SP [id number]) Out-Patient Physical Therapy Visit Information Visit Information Visit Type Treatment Note Visit Start Time 09:05 Visit Stop Time 09:45 Total Visit Minutes 40 Visit Number 7 Number of ASSEMBLER SHOW MOTOR Visits 1 Evaluation Information Evaluation Date 04/04/21 PT-OP-B Current Condition Start: 04/04/21 17:58 Freq: Status: Active Protocol: Document 04/04/21 11:15 DCW (Rec: 04/05/21 09:45 DCW [id number]) Current Condition History of Current Condition Onset Date ~6 week history Current Complaints R knee pain, instability, fatigue History of Current Condition Pt is a 65 year old female presenting with a ~6 week history of right knee pain. Pt notes her pain began when she was bent over and her dog jumped at her. Admits she has been babying it, but going downhill or descending stairs still bothers her. Also admits that since she is compensating, the left is now taking a lot of abuse. Notes some fatigue when out walking the dog or sitting inher car. Has noticed an increase in popping at the knee, and has a recently diagnosed Harper's cyst on the right knee. Notes recent x-ray showed some mild arthritis. PT-OP-C Subjective Start: 04/04/21 17:58 Freq: Status: Active Protocol: Document 05/06/21 09:05 SP (Rec: 05/06/21 09:49 SP [id number]) OP-PT Subjective Patient Comments Patient Comments Pt stated saw ortho yesterday and pleased with progress and released to continue on own. Is compliant with HEP walking, PT-OP-F Manual Assessment Start: 04/04/21 17:58 Freq: Status: Active Protocol: Document 04/04/21 11:15 DCW (Rec: 04/05/21 12:46 DCW [id number]) Manual Assessments Soft Tissue Assessment Soft Tissue Mobility Assessment Mild joint effusion, general soreness along right medial patella, R Harper's cyst PT-OP-G Mobility & Gait Start: 04/04/21 17:58 Freq: Status: Active Protocol: Document 04/04/21 11:15 DCW (Rec: 04/05/21 14:15 DCW [id number]) OP Gait Assessment Gait Gait Assistance Required: Independent Able to Maintain Weight Bearing Status Yes During Gait Assistive Devices Assistive Device None Comments Gait Comments R supination during gait with abnormal wear pattern along outside edge of right shoe. Stair Climbing Evaluation Comments Stair Climbing Comments Knee discomfort with descending steps PT-OP-L Special Tests Start: 04/04/21 17:58 Freq: Status: Active Protocol: Document 04/04/21 11:15 DCW (Rec: 04/05/21 14:15 DCW [id number]) Special Tests Lumbar Spine Special Tests A-P Shearing Test Results Negative EMMA Test Results Negative Straight Leg Raise Test Results Negative Slump Test Results Negative Compression Test Results Negative Knee Special Tests Varus- 0 Degrees Test Results Negative Valgus- 0 Degrees Test Results Negative Posterior Draw Test Results Negative Patellar Grind Test Test Results Positive R Patella Tap Test Results Positive R Adam's Test Test Results Negative Ankush Test Test Results Negative Apprehension Test Test Results Negative Apley's Compression Test Results Negative Anterior Draw Test Results Negative PT-OP-M Strength Start: 04/04/21 17:58 Freq: Status: Active Protocol: Document 04/04/21 11:15 DCW (Rec: 04/05/21 14:15 DCW [id number]) Hip Strength Hip Manual Muscle Testing Right Flexion (L2) 5 Normal Extension (S1) 5 Normal Abduction 5 Normal Adduction 5 Normal External Rotation 5 Normal Internal Rotation 5 Normal Left Flexion (L2) 5 Normal Extension (S1) 5 Normal Abduction 5 Normal Adduction 5 Normal External Rotation 5 Normal Internal Rotation 5 Normal Knee Strength Knee Manual Muscle Testing Right Flexion (S2) 4 Good Extension (L3) 5 Normal Comments R knee flexion weakness appeared to be more secondary to pain than muscle weakness Left Flexion (S2) 5 Normal Extension (L3) 5 Normal PT-OP-Q Treatments Start: 04/04/21 17:58 Freq: Status: Active Protocol: Document 05/06/21 09:05 SP (Rec: 05/06/21 09:49 SP [id number]) Cardio Equipment Recumbent Bicycle Duration (Minutes) 7 Resistance 5 Seat Position 3 Other miles 2.5 Therapeutic Exercises Supine Exercises heel slides Supine Exercise Name w/ strap Side right Reps/Minutes x10 Comments 128 deg AAROM (stated got 115* AROM yesterday) Sitting Exercises LAQ Sitting Exercise Name concentric and eccentric ROM ( added to HEP) Side right Resistance TB#2 Reps/Minutes x10 each Comments good feedback response self STMs rolling pin Sitting Exercise Name quad, HS, calf, ITB Side right Reps/Minutes 5 min Standing Exercises 4 Standing Exercise Name Lunge Side bilateral Equipment Used Blue BOSU (disc/ throw pillow at home) 1 Standing Exercise Name TKE Side bilateral Resistance Lv 3 (provided #4 for home) Equipment Used T-band Reps/Minutes x20 Other Exercises self patella mobs and STMs Side right Reps/Minutes 3 min PT-OP-T Assessment and Plan Start: 04/04/21 17:58 Freq: Status: Active Protocol: Document 05/06/21 09:05 SP (Rec: 05/06/21 09:49 SP [id number]) Physical Therapy Assessment Goals Two Impairment Pt has difficulty walking down hill due to knee pain Longterm Goal (LTG) Pt to hike more than two miles over hilly terrain with no complaints of increased pain. 05/06/21: did some hiking in [place] on moderate trails and with focus on heel toe makes hip pain go away. LTG Duration 06/04/21 Goal met 05/06/21 One Impairment Pt does not have an appropriate home exercise program Short Term Goal (STG) Pt to be independent and compliant with an appropriate HEP 05/17/21: TKE TB, lunges off uneven surface AROM off 2nd step, stretching, initiated LAQ and eccentric flexion using TB for ROM- good response, AAROM using strap in supine, stick rolling quad/ HS/ calf, patella mobs self application. STG Duration 05/05/21 Goal Met 05/06/21 Assessment Summary Assessment Pt stated was confident in review of HEP and initiated AAROM using strap and TB for home supine/ sitting and Self use of rolling pin to loosen up R quad for home application going forward herself. No pain end of tx. Physical Therapy Plan Frequency and Duration Frequency of Treatment 2x/Week Duration of Treatment Two months Plan of Care Start Date 04/04/21 Plan of Care End Date 06/04/21 Therapeutic Interventions Therapeutic Interventions Gait Training,Home Exercise Program,Joint Mobilizations, Manual Therapy,Neuromuscular Re-education,Patient/Caregiver Education,Self-Care/Home Management,Therapeutic Exercises Modalities Cold Pack/Ice Massage,Electric Stimulation,Hot Packs, Ultrasound Discharge Physical Therapy Discharge Reasons Goals Met Discharge Comments Discharge to HEP. PT to complete DC Summary. Next Visit Focus/Plan Next Note Type Treatment Note Next Visit Plan discharge to HEP.
--- NOTE | 2021-05-16 15:32 | PT.OPDS ---
Current Diagnoses Unilateral primary osteoarthritis, right knee (05/06/21) Unspecified tear of unspecified meniscus, current injury, right knee, initial encounter (05/06/21) Visit Care Team Role Provider Type ALLAN Montano Family Provider Advanced Record Label Intern Primary Care Provider Specialty: Family Practice Address: [address] [place], [address] Email: Frank Arambula MD Attending Provider Physician Referring Provider Specialty: Orthopedic Surgery Address: [address] [place] [address], [address] Email: [email or web address] Visit Number Visit Number 7 Discharge Summary PT-OP-B Current Condition Start: 04/04/21 17:58 Freq: Status: Active Protocol: Document 04/04/21 11:15 DCW (Rec: 04/05/21 09:45 DCW [id number]) Current Condition History of Current Condition Onset Date ~6 week history Current Complaints R knee pain, instability, fatigue History of Current Condition Pt is a 65 year old female presenting with a ~6 week history of right knee pain. Pt notes her pain began when she was bent over and her dog jumped at her. Admits she has been babying it, but going downhill or descending stairs still bothers her. Also admits that since she is compensating, the left is now taking a lot of abuse. Notes some fatigue when out walking the dog or sitting inher car. Has noticed an increase in popping at the knee, and has a recently diagnosed Harper's cyst on the right knee. Notes recent x-ray showed some mild arthritis. PT-OP-C Subjective Start: 04/04/21 17:58 Freq: Status: Active Protocol: Document 05/06/21 09:05 SP (Rec: 05/06/21 09:49 SP [id number]) OP-PT Subjective Patient Comments Patient Comments Pt stated saw ortho yesterday and pleased with progress and released to continue on own. Is compliant with HEP walking, PT-OP-F Manual Assessment Start: 04/04/21 17:58 Freq: Status: Active Protocol: Document 04/04/21 11:15 DCW (Rec: 04/05/21 12:46 DCW [id number]) Manual Assessments Soft Tissue Assessment Soft Tissue Mobility Assessment Mild joint effusion, general soreness along right medial patella, R Harper's cyst PT-OP-G Mobility & Gait Start: 04/04/21 17:58 Freq: Status: Active Protocol: Document 04/04/21 11:15 DCW (Rec: 04/05/21 14:15 DCW [id number]) OP Gait Assessment Gait Gait Assistance Required: Independent Able to Maintain Weight Bearing Status Yes During Gait Assistive Devices Assistive Device None Comments Gait Comments R supination during gait with abnormal wear pattern along outside edge of right shoe. Stair Climbing Evaluation Comments Stair Climbing Comments Knee discomfort with descending steps PT-OP-L Special Tests Start: 04/04/21 17:58 Freq: Status: Active Protocol: Document 04/04/21 11:15 DCW (Rec: 04/05/21 14:15 DCW [id number]) Special Tests Lumbar Spine Special Tests A-P Shearing Test Results Negative EMMA Test Results Negative Straight Leg Raise Test Results Negative Slump Test Results Negative Compression Test Results Negative Knee Special Tests Varus- 0 Degrees Test Results Negative Valgus- 0 Degrees Test Results Negative Posterior Draw Test Results Negative Patellar Grind Test Test Results Positive R Patella Tap Test Results Positive R Adam's Test Test Results Negative Ankush Test Test Results Negative Apprehension Test Test Results Negative Apley's Compression Test Results Negative Anterior Draw Test Results Negative PT-OP-M Strength Start: 04/04/21 17:58 Freq: Status: Active Protocol: Document 04/04/21 11:15 DCW (Rec: 04/05/21 14:15 DCW [id number]) Hip Strength Hip Manual Muscle Testing Right Flexion (L2) 5 Normal Extension (S1) 5 Normal Abduction 5 Normal Adduction 5 Normal External Rotation 5 Normal Internal Rotation 5 Normal Left Flexion (L2) 5 Normal Extension (S1) 5 Normal Abduction 5 Normal Adduction 5 Normal External Rotation 5 Normal Internal Rotation 5 Normal Knee Strength Knee Manual Muscle Testing Right Flexion (S2) 4 Good Extension (L3) 5 Normal Comments R knee flexion weakness appeared to be more secondary to pain than muscle weakness Left Flexion (S2) 5 Normal Extension (L3) 5 Normal PT-OP-T Assessment and Plan Start: 04/04/21 17:58 Freq: Status: Active Protocol: Document 05/16/21 15:30 DCW (Rec: 05/16/21 15:32 DCW [id number]) Physical Therapy Assessment Goals Two Impairment Pt has difficulty walking down hill due to knee pain Retirement Goal (LTG) Pt to hike more than two miles over hilly terrain with no complaints of increased pain. 05/06/21: did some hiking in [place] on moderate trails and with focus on heel toe makes hip pain go away. LTG Duration 06/04/21 Goal met 05/06/21 One Impairment Pt does not have an appropriate home exercise program Short Term Goal (STG) Pt to be independent and compliant with an appropriate HEP 05/17/21: TKE TB, lunges off uneven surface AROM off 2nd step, stretching, initiated LAQ and eccentric flexion using TB for ROM- good response, AAROM using strap in supine, stick rolling quad/ HS/ calf, patella mobs self application. STG Duration 05/05/21 Goal Met 05/06/21 Progress Towards Goals Progress Towards Goals Goals Met Assessment Summary Assessment Pt has met goals, comfortable with discharge to independent HEP at this time. Physical Therapy Plan Frequency and Duration Frequency of Treatment 2x/Week Duration of Treatment Two months Plan of Care Start Date 04/04/21 Plan of Care End Date 06/04/21 Therapeutic Interventions Therapeutic Interventions Gait Training,Home Exercise Program,Joint Mobilizations, Manual Therapy,Neuromuscular Re-education,Patient/Caregiver Education,Self-Care/Home Management,Therapeutic Exercises Modalities Cold Pack/Ice Massage,Electric Stimulation,Hot Packs, Ultrasound Discharge Physical Therapy Discharge Reasons Goals Met Next Visit Focus/Plan Next Note Type Discharge Summary
== END 2021-05-17 08:10 | disposition home or self-care (01) ==
LOC: PHYS 09:00
PROVIDERS: Family Provider Nurse Practitioner Family; PCP Nurse Practitioner Family; Referring Provider Orthopaedic Surgery; Visit Provider Orthopaedic Surgery
DX: M17.11 Unilateral primary osteoarthritis, right knee (principal); S83.206A Unspecified tear of unspecified meniscus, current injury, right knee, initial encounter
CPT/HCPCS: 97110; 97116; 97140; 97161